=== PATIENT | female | born 1970 | race African-American/Black ===

== ENCOUNTER 2020-09-11 16:08 | Emergency (ER) | payer SELFPAY ==
[~2020-09-11] VITALS: Ht 165.1 cm; Wt 69.4 kg
[2020-09-11] MEDS ORDERED: ONDANSETRON HCL 4MG/2ML INJ IV STA (16:34)
[2020-09-11] MEDS ORDERED: KETOROLAC 30MG/ML VIAL IV STA (16:34)
[2020-09-11 17:51] LABS: BASOPHILS % 0.8 % (0.0-2.0); EOSINOPHILS % 0.6 % (0.0-5.0); HEMATOCRIT. 40.5 % (36.0-48.0); HEMOGLOBIN. 13.5 g/dL (12.0-16.0); LYMPHOCYTES % 35.1 % (20.0-50.0); MEAN CORPUSCULAR HEMOGLOBIN 31.1 pg (28.0-32.0); MEAN CORPUSCULAR VOLUME 93.4 fL (81.0-99.0); MEAN PLATELET VOLUME 10.3 fl (7.4-10.4); MONOCYTES % 9.4 % (2.0-8.0); NEUTROPHILS % 54.1 % (40.0-76.0); PLATELET 246 x1000/uL (130-400); RED BLOOD CELL COUNT 4.33 mill/uL (4.2-5.4); RED CELL DISTRIBUTION WIDTH 14.1 % (11.6-14.6)
[2020-09-11 18:00] LABS: INR 1.1; PROTHROMBIN TIME 11.4 sec (9.6-11.0)
[2020-09-11 18:03] LABS: HCG SCREEN NEGATIVE
[2020-09-11 18:11] LABS: ETHANOL BLOOD < 10 mg/dL
[2020-09-11 18:13] LABS: CHLORIDE 103 mEq/L (98-107)
[2020-09-11] MEDS ORDERED: POTASSIUM CHLORIDE 20MEQ TABLET SR PO ONE (18:30)
[2020-09-11 18:36] VITALS: BP 108/56
[2020-09-11] MEDS ORDERED: POTA20TA82 MT (20:20)
== END 2020-09-11 20:52 | disposition home or self-care (01) ==
LOC: ER 16:08
DX: R10.9 Unspecified abdominal pain (principal); F43.0 Acute stress reaction; F41.0 Panic disorder [episodic paroxysmal anxiety]; E87.6 Hypokalemia; Z88.0 Allergy status to penicillin
CPT/HCPCS: 36415; 71045; 74176; 80053; 80307; 80320; 80329; 84484; 84703; 85025; 93005; 99285; G0480